=== PATIENT | female | born 1990 | race American Indian/Alaskan Native ===

== ENCOUNTER 2020-07-07 12:43 | Emergency (ER) | payer OTHER ==
[2020-07-07 13:54] VITALS: BP 107/76
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
[2020-07-07] MEDS ORDERED: ACETAMINOPHEN 325 MG TAB PO ONE (13:57)
[2020-07-07] MEDS ORDERED: ACETAMINOPHEN 325 MG TAB ONE (13:59)
--- NOTE | 2020-07-07 14:38 | XRay Report ---
Right hand 3 views INDICATION: Right hand pain. IMPRESSION: No fracture or subluxation of the right hand is identified. No significant degenerative c hanges. Signer Name: Nirva Perez MD Signed: 07/07/2020 2:34 PM Workstation Name: [id number]
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
[2020-07-07] MEDS ORDERED: IBUPROFEN 600 MG TAB PO ONE (16:09)
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
== END 2020-07-07 16:37 | disposition home or self-care (01) ==
LOC: ED 12:43
DX: S16.1XXA Strain of muscle, fascia and tendon at neck level, initial encounter (principal); M25.531 Pain in right wrist; R51.9 Headache, unspecified; Z79.899 Other long term (current) drug therapy; V49.19XA Passenger injured in collision with other motor vehicles in nontraffic accident, initial encounter; Y93.89 Activity, other specified; Y92.488 Other paved roadways as the place of occurrence of the external cause; Y99.8 Other external cause status
CPT/HCPCS: 70450; 72125

== ENCOUNTER 2022-03-22 13:05 | Emergency (ER) | payer OTHER ==
[2022-03-22 13:50] VITALS: BP 145/92
[2022-03-22 14:50] LABS: Basophils % (Auto) 0.5 % (0.0-1.8); Eosinophils % (Auto) 0.7 % (0.0-4.3); Hematocrit 39.8 % (30.3-42.9); Hemoglobin 12.8 gm/dl (10.1-14.3); Lymphocytes # (Auto) 0.9 K/mm3 (1.2-5.4); Lymphocytes % (Auto) 19.1 % (13.4-35.0); Mean Corpuscular HGB Conc 32 % (30-34); Mean Corpuscular Volume 96 fl (79-97); Monocytes # (Auto) 0.3 K/mm3 (0.0-0.8); Monocytes % (Auto) 5.8 % (0.0-7.3); Platelet Count 308 K/mm3 (140-440); Red Blood Count 4.15 M/mm3 (3.65-5.03); Red Cell Distribution Width 13.6 % (13.2-15.2)
[2022-03-22 15:10] LABS: BUN/Creatinine Ratio 11; Blood Urea Nitrogen 9 mg/dL (7-17); Hemolysis Index 3
== END 2022-03-23 05:39 | disposition left against medical advice (07) ==
LOC: ED 13:05
DX: R53.1 Weakness (principal); Z53.21 Procedure and treatment not carried out due to patient leaving prior to being seen by health care provider
CPT/HCPCS: 36415; 80048; 84703; 85025